=== PATIENT | male | born 1960 | race African-American/Black ===

== ENCOUNTER 2017-07-26 16:46 | Emergency (ER) | payer MEDICAID ==
[2017-07-26] VITALS (8 sets, daily range): BP systolic 135–142; BP diastolic 82–92
[~2017-07-26] VITALS: Ht 172.7 cm; Wt 72.6 kg
[2017-07-26] MEDS ORDERED: Haloperidol 5mg/ml Inj IM ONE (17:00)
[2017-07-26] MEDS ORDERED: LORazepam Inj 2mg/ml 1ml IV ONE (17:00)
[2017-07-26] MEDS ORDERED: DiphenhydrAMINE 50mg/ml Inj IVP ONE (17:00)
[2017-07-26 18:06] LABS: HEMATOCRIT 37.2 % (42.0-52.0); HEMOGLOBIN 12.8 G/DL (14.2-18.0); MEAN CORPUSCULAR VOLUME 90 FL (80-99); PLATELET COUNT 124 K/UL (150-450); RED BLOOD COUNT 4.15 M/UL (4.70-6.10); RED CELL DISTRIBUTION WIDTH 12.5 % (11.6-14.8); WHITE BLOOD COUNT 3.3 K/UL (4.8-10.8)
[2017-07-26 18:17] LABS: ALANINE AMINOTRANSFERASE 99 U/L (12-78); ALBUMIN 3.1 G/DL (3.4-5.0); ALBUMIN/GLOBULIN RATIO 0.6 (1.0-2.7); ALKALINE PHOSPHATASE 124 U/L (46-116); ANION GAP 10 mmol/L (5-15); ASPARTATE AMINO TRANSFERASE 188 U/L (15-37); BILIRUBIN,TOTAL 0.7 MG/DL (0.2-1.0); BLOOD UREA NITROGEN 10 mg/dL (7-18); CALCIUM 8.9 MG/DL (8.5-10.1); CARBON DIOXIDE 26 MMOL/L (21-32); CHLORIDE 105 MMOL/L (98-107); SODIUM 141 MMOL/L (136-145)
--- NOTE | 2017-07-26 20:16 | Emergency Room Report ---
History of Present Illness General Chief Complaint: Altered Level of Consciousness Source: Medical Record, EMS Present Illness HPI Patient presents emergency department today with acute altered mental status. Patient apparently was disturbing someone's property EMS is contacted he was combative and spitting and required 4 point restraints. Patient was brought in 4. leather restraints with a mask over his head he was aggressive and threatening to hurt others. Symptoms noted to be severe. Patient was able to provide any history as he was very aggressive and required immediate sedation.No other modifying factors. No other associated signs and symptoms. No other complaints were noted. Allergies: Coded Allergies: UNABLE TO ASSESS (Unverified , 07/26/17) Patient History Past Medical History: unable to obtain Past Surgical History: unable to obtain Pertinent Family History: unable to obtain Social History Narrative patient appears to be intoxicated Reviewed Nursing Documentation: PMH: Agreed Nursing Documentation-PMH Past Medical History Deferred: Pt Cognitively Impaired Past Medical History: Deferred Review of Systems All Other Systems: limited - patient is not cooperative Physical Exam Vital Signs Date Time Temp Pulse Resp B/P (MAP) Pulse Ox O2 Delivery O2 Flow Rate FiO2 07/26/17 16:31 97.7 81 16 146/92 97 Room Air Sp02 EP Interpretation: reviewed, normal General Appearance: moderate distress Head: atraumatic Eyes: bilateral eye normal inspection ENT: hearing grossly normal, moist mucus membranes Neck: supple Respiratory: lungs clear, no respiratory distress Cardiovascular #1: regular rate, rhythm, no edema Gastrointestinal: soft, no mass Genitourinary: normal inspection Musculoskeletal: normal inspection, back normal Neurologic: alert, responsive Psychiatric: other - acutely aggressive danger to self Skin: normal inspection, normal color, no rash Procedures Critical Care Time Critical Care Time Patient had a critical medical condition which untreated could potentially result in life or limb threatening injury. Total critical care time excluding procedures was approximately 45 minutes. Medical Decision Making Diagnostic Impression: Primary Impression: Altered level of consciousness Additional Impression: Alcohol intoxication ER Course Patient presents emergency department today with acute altered mental status. Patient was combative required chemical and physical restraints. Patient's laboratory workup showed an elevated alcohol level. Patient was monitored here for long period of time. Until he was clinically sober. Patient is feeling much better now than going well difficulty. He's requesting discharge. Therefore patient will be discharged. Patient was homeless but he declined placement or any shelters. Request to be discharged. Therefore patient was discharged Labs Test 07/26/17 17:32 07/26/17 18:56 White Blood Count 3.3 K/UL (4.8-10.8) Red Blood Count 4.15 M/UL (4.70-6.10) Hemoglobin 12.8 G/DL (14.2-18.0) Hematocrit 37.2 % (42.0-52.0) Mean Corpuscular Volume 90 FL (80-99) Mean Corpuscular Hemoglobin 30.9 PG (27.0-31.0) Mean Corpuscular Hemoglobin Concent 34.5 G/DL (32.0-36.0) Red Cell Distribution Width 12.5 % (11.6-14.8) Platelet Count 124 K/UL (150-450) Mean Platelet Volume 9.2 FL (6.5-10.1) Neutrophils (%) (Auto) % (45.0-75.0) Lymphocytes (%) (Auto) % (20.0-45.0) Monocytes (%) (Auto) % (1.0-10.0) Eosinophils (%) (Auto) % (0.0-3.0) Basophils (%) (Auto) % (0.0-2.0) Differential Total Cells Counted 100 Neutrophils % (Manual) 43 % (45-75) Lymphocytes % (Manual) 46 % (20-45) Monocytes % (Manual) 9 % (1-10) Eosinophils % (Manual) 0 % (0-3) Basophils % (Manual) 2 % (0-2) Band Neutrophils 0 % (0-8) Platelet Estimate Decreased Platelet Morphology Normal Anisocytosis 1+ Sodium Level 141 MMOL/L (136-145) Potassium Level 4.0 MMOL/L (3.5-5.1) Chloride Level 105 MMOL/L (98-107) Carbon Dioxide Level 26 MMOL/L (21-32) Anion Gap 10 mmol/L (5-15) Blood Urea Nitrogen 10 mg/dL (7-18) Creatinine 1.0 MG/DL (0.55-1.30) Estimat Glomerular Filtration Rate > 60 mL/min (>60) Glucose Level 98 MG/DL (74-106) Calcium Level 8.9 MG/DL (8.5-10.1) Total Bilirubin 0.7 MG/DL (0.2-1.0) Aspartate Amino Transf (AST/SGOT) 188 U/L (15-37) Alanine Aminotransferase (ALT/SGPT) 99 U/L (12-78) Alkaline Phosphatase 124 U/L (46-116) Total Protein 7.9 G/DL (6.4-8.2) Albumin 3.1 G/DL (3.4-5.0) Globulin 4.8 g/dL Albumin/Globulin Ratio 0.6 (1.0-2.7) Salicylates Level < 2.0 ug/mL (2.8-20) Acetaminophen Level < 10 MCG/ML (10-30) Serum Alcohol 263 mg/dL Urine Opiates Screen Negative (NEGATIVE) Urine Barbiturates Screen Negative (NEGATIVE) Phencyclidine (PCP) Screen Negative (NEGATIVE) Urine Amphetamines Screen Negative (NEGATIVE) Urine Benzodiazepines Screen Negative (NEGATIVE) Urine Cocaine Screen Negative (NEGATIVE) Urine Marijuana (THC) Screen Negative (NEGATIVE) Last Vital Signs Date Time Temp Pulse Resp B/P (MAP) Pulse Ox O2 Delivery O2 Flow Rate FiO2 07/26/17 18:14 80 18 99 Room Air 07/26/17 16:31 97.7 146/92 Status: improved Disposition: HOME, SELF-CARE Condition: Stable Scripts Unable to Obtain Active Prescriptions or Reported Meds MEKA WETZEL M.D. Jul 26, 2017 20:16
[2017-07-27 03:52] VITALS: BP 111/74
[2017-07-27 07:18] VITALS: BP 116/82
== END 2017-07-27 07:18 | disposition home or self-care (01) ==
LOC: EDBD 16:46 → EMR 16:58
DX: R41.82 Altered mental status, unspecified (principal); F10.129 Alcohol abuse with intoxication, unspecified
CPT/HCPCS: 36415; 80053; 80307; 80329; 85007; 85025; 96361; 96372; 96374; 96375; 99291; J1200; J1630